=== PATIENT | female | born 1955 | race Caucasian/White ===

== ENCOUNTER 2017-10-19 23:33 | Emergency (ER) | payer OTHER ==
[~2017-10-19] VITALS: Ht 170.2 cm; Wt 65.9 kg
[~2017-10-19 23:33] MED LIST: ALER-CAP25 M1 PO; AMLODIPINE BESY10 MG PO; ASCORBIC ACID100 MG PO; ASCORBIC ACID500 M3 PO; ATORVASTATIN CA40 MG PO; ATROVENT 00.5 MG/2.5 IH; ATROVENT H200 INHALA IH; AXERT12.5 MG PO; BIAXIN500 M1 PO; CARDIZEM CD120 MG PO; CARDIZEM SR120 MG PO; CITALOPRAM HBR20 M1 PO; CITALOPRAM HBR20 MG PO; CLEARLAX17 GM PO; CLONAZEPAM; CLONAZEPAM2 M1 PO; DAILY VALUE1 EACH PO; DEXAMETHASONE0.5 MG PO; DINO-LIFE1 EAC1 PO; DULERA 100 MCG/13 GM IH; DULERA 200 MCG/13 GM IH; FEXOFENADINE HC60 MG PO; FLEXERIL10 MG PO; FLONASE16 G1 BOTH NARES; HYDROCHLOROTHIA25 MG PO; HYDROCHLOROTHIAZIDE; HYDROCODON-ACE1 EA12 PO; IMITREX50 MG PO; K-DUR20 MEQ PO; LISINOPRIL10 MG PO; LO-DOSE ASPIRIN81 M1 PO; LORAZEPAM0.5 MG PO; LOVASTATIN40 MG PO; MELOXICAM15 MG PO; METOPROLOL; METOPROLOL SUCC25 MG PO; METRONIDAZOLE500 MG PO; MOBIC15 MG PO; NAPROSYN500 MG PO; NEXIUM40 MG PO; NORCO 5/3251 TABLET PO; NORVASC5 MG PO; PERCOCET 5/31 TABLET PO; PROAIR HFA8.5 GM IH; PROTONIX40 MG PO; SIMVASTATIN20 MG PO; SIMVASTATIN40 M1 PO; VENLAFAXINE HCL75 M3 PO; VICODIN 5-3001 EACH PO; VITAMIN B-1250 MG PO; ZAFIRLUKAST20 M1 PO; ZOFRAN ODT4 MG PO; ZOFRAN8 MG PO; Zocor PO
[2017-10-20 01:13] VITALS: BP 130/70
== END 2017-10-20 01:16 | disposition home or self-care (01) ==
LOC: EME 23:33 → RME 23:33
DX: S91.205A Unspecified open wound of left lesser toe(s) with damage to nail, initial encounter (principal); W22.09XA Striking against other stationary object, initial encounter; E11.9 Type 2 diabetes mellitus without complications; I10 Essential (primary) hypertension; E78.5 Hyperlipidemia, unspecified; Z79.82 Long term (current) use of aspirin; J44.9 Chronic obstructive pulmonary disease, unspecified; F41.9 Anxiety disorder, unspecified; Z88.0 Allergy status to penicillin; Z88.8 Allergy status to other drugs, medicaments and biological substances; Z87.891 Personal history of nicotine dependence
CPT/HCPCS: 99281; 99284